=== PATIENT | female | born 1970 | race Caucasian/White ===

== ENCOUNTER 2018-11-10 16:16 | Emergency (ER) | payer BC ==
[2018-11-10 16:30] VITALS: TEMP 98.5
--- NOTE | 2018-11-10 17:38 | ED ---
General Adult HPI - General Chief complaint: Psychiatric Symptoms Stated complaint: mental health Time Seen by Provider: 11/10/18 16:27 Source: patient, RN notes reviewed Mode of arrival: ambulatory Limitations: no limitations - History of Present Illness Initial comments: 48-year-old female presents to the emergency department for a chief complaint of depression. Patient was diagnosed with PTSD 4-1/2 years ago when her from a "blood clots". States she watched him struggle to breathe or 40 minutes before he . Patient states she has struggled with PTSD and feelings of guilt since that time. States she is very depressed. States that she would have killed herself when her if it were not for her son's. States it has been worsening lately. Patient accidentally cut her hand last week and stated it felt good soap, several superficial lacerations along the palms of her hand. States she cut herself here so people would not be able to notice them. States over the weekend she has had multiple suicidal thoughts. Denies plan at this time. States she wishes she was so she could be with her . Patient has no other complaints at this time including shortness of breath, chest pain, abdominal pain, nausea or vomiting, headache, or visual changes. - Related Data Home Medications Medication Instructions Recorded Confirmed ARIPiprazole [Abilify] 2 mg PO HS 11/10/18 11/10/18 Cyclobenzaprine [Flexeril] 10 mg PO HS 11/10/18 11/10/18 Gabapentin 600 mg PO DAILY@1300 11/10/18 11/10/18 Gabapentin [Neurontin] 1,200 mg PO BID@0800,2100 11/10/18 11/10/18 Methadone [Dolophine] 10 mg PO BID@0800,2100 11/10/18 11/10/18 Methadone [Dolophine] 20 mg PO DAILY@1300 11/10/18 11/10/18 amLODIPine BESYLATE/BENAZEPRIL 1 cap PO DAILY 11/10/18 11/10/18 [Lotrel 10-40 MG] buPROPion HCL [Wellbutrin XL] 150 mg PO DAILY 11/10/18 11/10/18 buPROPion HCL [Wellbutrin XL] 300 mg PO DAILY 11/10/18 11/10/18 clonazePAM [KlonoPIN] 0.5 mg PO HS PRN 11/10/18 11/10/18 metFORMIN HCL [Glucophage] 500 mg PO DAILY 11/10/18 11/10/18 traZODone HCL 100 mg PO HS 11/10/18 11/10/18 Allergies Allergy/AdvReac Type Severity Reaction Status Date / Time adhesive Allergy Unknown Verified 11/10/18 18:15 Sulfa (Sulfonamide Allergy Unknown Verified 11/10/18 18:15 Antibiotics) Review of Systems ROS Statement: Those systems with pertinent positive or pertinent negative responses have been documented in the HPI. ROS Other: All systems not noted in ROS Statement are negative. 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 Absent: scleral icterus, conjunctival injection, periorbital swelling ENT exam: Present: normal exam, mucous membranes moist Neck exam: Present: normal inspection, full ROM. Absent: tenderness, meningismus, lymphadenopathy Respiratory exam: Present: normal lung sounds bilaterally. Absent: respiratory distress, wheezes, rales, rhonchi, stridor Cardiovascular Exam: Present: regular rate, normal rhythm, normal heart sounds. Absent: systolic murmur, diastolic murmur, rubs, gallop, clicks Neurological exam: Present: alert, oriented X3, CN II-XII intact Psychiatric exam: Present: normal affect, normal mood Course Vital Signs 11/10/18 16:25 Temperature 98.5 F Pulse Rate 97 Respiratory 18 Rate Blood Pressure 119/79 O2 Sat by Pulse 96 Oximetry Medical Decision Making - Medical Decision Making Patient evaluated by EPS, will be transferred to psychiatric facility elsewhere. - Lab Data Lab Results 11/10/18 Range/Units 17:14 Urine Opiates Screen Not Detected (NotDetected) Ur Oxycodone Screen Not Detected (NotDetected) Urine Methadone Screen Detected H (NotDetected) Ur Propoxyphene Screen Not Detected (NotDetected) Ur Barbiturates Screen Not Detected (NotDetected) U Tricyclic Antidepress Detected H (NotDetected) Ur Phencyclidine Scrn Not Detected (NotDetected) Ur Amphetamines Screen Not Detected (NotDetected) U Methamphetamines Scrn Not Detected (NotDetected) U Benzodiazepines Scrn Not Detected (NotDetected) Urine Cocaine Screen Not Detected (NotDetected) U Marijuana (THC) Screen Not Detected (NotDetected) Disposition Clinical Impression: Suicidal ideation, Depression Disposition: TRANSFER TO PSYCH HOSP/UNIT Condition: Fair Referrals: Hailee Swanson DO [Primary Care Provider] - 1-2 days Time of Disposition: 20:44
[2018-11-10 17:48] LABS: Amphetamine Screen,Urine Not Detected (NotDetected); Barbiturate Screen,Urine Not Detected (NotDetected); Benzodiazepines Screen,Urine Not Detected (NotDetected); Cocaine Screen,Urine Not Detected (NotDetected); Methadone Screen, Urine Detected (NotDetected); Opiate Screen,Urine Not Detected (NotDetected); Oxycodone Screen, Urine Not Detected (NotDetected); Phencyclidine Screen,Urine Not Detected (NotDetected); Tricyclic Antidepressant,Urine Detected (NotDetected); Urn Cannabinoid Scrn Not Detected (NotDetected)
[2018-11-10] MEDS ORDERED: NICOTINE 21MG/24HR PATCH TRANSDERM STA (20:23)
[2018-11-10] MEDS ORDERED: LORazepam 1 MG TAB PO STA (20:43)
[2018-11-10 21:07] LABS: Basophils # (A) 0.1 k/uL (0-0.2); Basophils % (A) 1 %; Eosinophils # (A) 0.3 k/uL (0-0.7); Eosinophils % (A) 4 %; HGB 14.1 gm/dL (11.4-16.0); Lymphocytes # (A) 2.3 k/uL (1.0-4.8); Lymphocytes % (A) 39 %; MCH 31.3 pg (25.0-35.0); MCHC 33.7 g/dL (31.0-37.0); MCV 92.9 fL (80.0-100.0); Mean Platelet Volume 6.8; Monocytes # (A) 0.3 k/uL (0-1.0); Monocytes % (A) 5 %; Neutrophils % (A) 50 %; Platelet Count 253 k/uL (150-450); RBC 4.52 m/uL (3.80-5.40); RDW 14.7 % (11.5-15.5); WBC 6.1 k/uL (3.8-10.6)
[2018-11-10 21:13] LABS: Appearance,Urine Cloudy (Clear); Bilirubin,Urine Negative (Negative); Blood,Urine Negative (Negative); Color,Urine Yellow; Glucose,Urine (UA) Negative (Negative); Ketones,Urine Negative (Negative); Leukocyte Esterase,Urine Negative (Negative); Mucus,Urine Few /hpf; Nitrite,Urine Negative (Negative); Protein,Urine Trace (Negative); RBC,Urine 2 /hpf (0-5); Specific Gravity,Urine 1.029 (1.001-1.035); Squamous Epithelial Cell,Urine 7 /hpf (0-4); WBC,Urine 2 /hpf (0-5)
[2018-11-10 21:15] LABS: ALT 13 U/L (9-52); AST 17 U/L (14-36); African American GFR (CKD) >90 (>60 ml/min/1.73 sqM); Alkaline Phosphatase 80 U/L (38-126); Anion Gap 5 mmol/L; Blood Urea Nitrogen 7 mg/dL (7-17); Calcium 8.9 mg/dL (8.4-10.2); Carbon Dioxide 28 mmol/L (22-30); Chloride 104 mmol/L (98-107); Glucose 67 mg/dL (74-99); Potassium 4.3 mmol/L (3.5-5.1); Sodium 137 mmol/L (137-145); Total Bilirubin 0.3 mg/dL (0.2-1.3); Total Protein 6.9 g/dL (6.3-8.2)
[2018-11-11 03:25] LABS: Hemoglobin A1C 5.4 % (4.0-6.0)
[2018-11-11 06:19] VITALS: BP 123/72; PULSE 73; RESP 16
== END 2018-11-11 07:12 ==
LOC: EC 16:16
DX: F32.9 Major depressive disorder, single episode, unspecified (principal); R45.851 Suicidal ideations; E11.9 Type 2 diabetes mellitus without complications; F41.9 Anxiety disorder, unspecified; F17.200 Nicotine dependence, unspecified, uncomplicated; Z79.84 Long term (current) use of oral hypoglycemic drugs; Z79.899 Other long term (current) drug therapy; Z88.2 Allergy status to sulfonamides; Z91.048 Other nonmedicinal substance allergy status
CPT/HCPCS: 82075; 36415; 80053; 85025; 81001; 80306; 83036; 99285; S4990